=== PATIENT | male | born 1980 | race Caucasian/White ===

== ENCOUNTER 2018-06-08 21:35 | Emergency (ER) | payer BC, SELFPAY ==
[~2018-06-08 21:35] MED LIST: Iopamidol 370 76% 100 ML VIAL ONE
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
== END 2018-06-08 22:35 | disposition home or self-care (01) ==
LOC: NAV ERS 21:35
DX: R07.9 Chest pain, unspecified (principal); M25.512 Pain in left shoulder; F41.9 Anxiety disorder, unspecified; F32.9 Major depressive disorder, single episode, unspecified; G40.909 Epilepsy, unspecified, not intractable, without status epilepticus; F17.210 Nicotine dependence, cigarettes, uncomplicated; V29.9XXA Motorcycle rider (driver) (passenger) injured in unspecified traffic accident, initial encounter
CPT/HCPCS: 71260; Q9967